=== PATIENT | male | born 2000 | race Caucasian/White ===

== ENCOUNTER 2023-01-18 07:40 | Emergency (ER) | payer SELFPAY ==
[2023-01-18 07:45] VITALS: BP 142/80; PULSE 96; RESP 18; TEMP 36.7; O2SAT 100; BMI 23.0
--- NOTE | 2023-01-18 07:51 | XR_ITS ---
The [address] [address] Patient Name: NURA HEWITT MRN: [id number] date: 2000 Sex: M Assigned Patient Location: ER Current Patient Location: ED.MAIN Accession/Order Number: [id number] Exam Date: 01/18/2023 08:08 Report Date: 01/18/2023 08:31 At the request of: SPENSER HEWITT Procedure: XR hand RT min 3V PROCEDURE: XR hand RT min 3V HISTORY: pain ; pain and swelling over fourth and 5th metacarpals following injury COMPARISON: None. FINDINGS: BONES:Old ununited fracture fragment adjacent the tip of the ulnar styloid process. Slight hyperextension of the 5th digit distal interphalangeal joint but no appreciable corner fracture or avulsion. Remaining bones and joints are unremarkable. SOFT TISSUES:No visible soft tissue swelling. EFFUSION:None visible. OTHER: Negative. XR/XR hand RT min 3V IMPRESSION: 1. No acute bone abnormality. 2. Hyperextension at 5th distal interphalangeal joints may be chronic or could indicate tendon disruption. Electronically authenticated by: LAYTON JUSTIN Date: 01/18/2023 08:31
[2023-01-18 08:37] VITALS: BP 138/78; PULSE 76; RESP 18; O2SAT 100
--- NOTE | 2023-01-18 08:44 | ED.UPPEXIN1 ---
HPI - Extremity Injury (Upper) General Chief Complaint: Extremity Injury, Upper Stated Complaint: UPPER EXTREMITY INJURY TO RIGHT HAND Time Seen by Provider: 01/18/23 07:47 Source: patient Mode of arrival: walk-in Limitations: no limitations History of Present Illness HPI narrative: 2 days ago the patient punched plywood with his right hand. He has pain and swelling to the dorsal hand along the 3rd metacarpal. Nothing taken for pain. No other injuries. Related Data Allergies Allergy/AdvReac Type Severity Reaction Status Date / Time No Known Drug Allergies Allergy Verified 01/18/23 07:44 PFSH PFS Social History Smoking status: Current every day smoker Exam Narrative Exam Narrative: Nurses notes and vital signs reviewed and patient is not hypoxic. afebrile General: Well-appearing and in no apparent distress. Skin: Warm, dry, no pallor noted. No rash Cardiovascular: Normal peripheral perfusion. Respiratory: No accessory muscle use or respiratory distress. Musculoskeletal: tenderness and swelling along the dorsum of the hand at the 2nd through 4th metacarpals. Pain with flexion and extension of the fingers of the right hand. No bony wrist tenderness. Neurological: A&O x4. No cranial nerve dysfunction observed. No truncal ataxia. Moves all extremities. Sensation intact. Psychiatric: Cooperative and interactive. Normal mood and affect. Constitutional Vital Signs, click to edit/add: Last Vital Signs Temp 98.1 F 01/18/23 07:45 Pulse 76 01/18/23 08:37 Resp 18 01/18/23 08:37 BP 138/78 01/18/23 08:37 Pulse Ox 100 01/18/23 08:37 O2 Del Method Room Air 01/18/23 07:45 Course Vital Signs Vital signs: Vital Signs Temperature 98.1 F 01/18/23 07:45 Pulse Rate 96 H 01/18/23 07:45 Respiratory Rate 18 01/18/23 07:45 Blood Pressure 142/80 H 01/18/23 07:45 Pulse Oximetry 100 01/18/23 07:45 Oxygen Delivery Method Room Air 01/18/23 07:45 Temperature 98.1 F 01/18/23 07:45 Pulse Rate 76 01/18/23 08:37 Respiratory Rate 18 01/18/23 08:37 Blood Pressure 138/78 01/18/23 08:37 Pulse Oximetry 100 11/20/23 08:37 Oxygen Delivery Method Room Air 01/18/23 07:45 MDM - Extremity Injury (Upper) MDM Narrative Medical decision making narrative: no fractures identified. ED nurse applied an guillermina wrap to the patient's right hand. Patient instructed to take ibuprofen and tylenol for pain. Imaging Data xr hand: Radiologist's impression: Patient Name: NURA HEWITT MRN: [id number] date: 2000 Sex: M Assigned Patient Location: ER Current Patient Location: ED.MAIN Accession/Order Number: [id number] Exam Date: 01/18/2023 08:08 Report Date: 01/18/2023 08:31 At the request of: SPENSER HEWITT Procedure: XR hand RT min 3V PROCEDURE: XR hand RT min 3V HISTORY: pain ; pain and swelling over fourth and 5th metacarpals following injury COMPARISON: None. FINDINGS: BONES:Old ununited fracture fragment adjacent the tip of the ulnar styloid process. Slight hyperextension of the 5th digit distal interphalangeal joint but no appreciable corner fracture or avulsion. Remaining bones and joints are unremarkable. SOFT TISSUES:No visible soft tissue swelling. EFFUSION:None visible. OTHER: Negative. IMPRESSION: 1. No acute bone abnormality. 2. Hyperextension at 5th distal interphalangeal joints may be chronic or could indicate tendon disruption. Electronically authenticated by: LAYTON JUSTIN Date: 01/18/2023 08:31 Discharge Plan Discharge Chief Complaint: Extremity Injury, Upper Clinical Impression: Hand sprain, Contusion of hand Patient Disposition: Home, Self-Care Time of Disposition Decision: 08:44 Instructions: Sprain (ED), Contusion in Adults (ED) Stand Alone Forms: Portal Instructions Referrals: Physician,Non-Staff, MD [Primary Care Provider] - 1 week
== END 2023-01-18 08:49 | disposition home or self-care (01) ==
PROVIDERS: Emergency Provider Emergency Medicine
DX: S63.91XA Sprain of unspecified part of right wrist and hand, initial encounter (principal); S60.221A Contusion of right hand, initial encounter; F17.210 Nicotine dependence, cigarettes, uncomplicated; W22.8XXA Striking against or struck by other objects, initial encounter
CPT/HCPCS: 73130; 99283

== ENCOUNTER 2023-05-30 20:08 | Emergency (ER) | payer SELFPAY ==
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
[2023-05-30 20:23] VITALS: BP 146/88; PULSE 128; TEMP 36.8; O2SAT 99; BMI 25.8
--- NOTE | 2023-05-30 20:34 | PC.NURSE ---
LFA swelling and pt is unable to rotate arm without pain
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
[2023-05-30] MEDS: ONDANSETRON 4 MG RAPDIS TABLET SL (20:57)
[2023-05-30] MEDS: KETOROLAC TROMETHAMINE 60 MG/2 ML VIAL IM (20:57)
[2023-05-30] MEDS: HYDROMORPHONE HCL 1 MG/ML CARTRIDGE IM (20:57)
== END 2023-05-30 21:57 | disposition home or self-care (01) ==
PROVIDERS: Emergency Provider Emergency Medicine
DX: S47.2XXA Crushing injury of left shoulder and upper arm, initial encounter (principal); V86.59XA Driver of other special all-terrain or other off-road motor vehicle injured in nontraffic accident, initial encounter; F17.210 Nicotine dependence, cigarettes, uncomplicated
CPT/HCPCS: 73090; 96372; 99284; J1170